=== PATIENT | male | born 1995 | race Caucasian/White ===

== ENCOUNTER 2018-05-04 20:37 | Emergency (ER) | payer OTHER ==
[2018-05-04] MEDS ORDERED: IBUP1TAB90 PO (20:47)
[2018-05-04] MEDS ORDERED: INSU100V24 SQ (20:49)
[2018-05-04] MEDS ORDERED: LANI SUBQ (20:49)
[2018-05-04] MEDS ORDERED: OXYMETAZOLINE SPRAY 15 ML BTL ENA SCH (21:20)
[2018-05-04] MEDS ORDERED: ENT KIT ONE (21:24)
--- NOTE | 2018-05-04 21:38 | ER Report ---
History and Physical Time Seen By MD: 20:55 Hx. of Stated Complaint: nosebleed for an hour gushing from r nare, pt lightheaded type 1 diabetic HPI/ROS CHIEF COMPLAINT: epistaxis HISTORY OF PRESENT ILLNESS: pt has had intermittent bleeding from r nare since this am; feels like just less than 1 cup over course of the day. Since he moved here 3 yrs ago, has occasional nosebleeds that are controlled when he keeps nares moist. Just returned from [facility] [place] and has not been using ointment. Scratched r nare today and noted bleeding. Lightheaded earlier today but not now. No cp, sob, ap. No known bleeding problems though his grandfather is seen for frequent nose bleeds as well. Has never had blood testing by pcm REVIEW OF SYSTEMS: Respiratory: No cough, no dyspnea. Cardiovascular: No chest pain, no palpitations. Gastrointestinal: No vomiting, no abdominal pain. Musculoskeletal: No back pain. Allergies: Coded Allergies: amoxicillin (Verified Allergy, Mild, 05/04/18) Home Meds Reported Medications Insulin Glargine (LANTUS) 100 Unit/Ml Soln, 100 UNIT SUBQ, ML 05/04/18 Insulin Lispro 100 Un/Ml Vial (HUMALOG 100 U/ML VIAL) 100 Unit/1 Ml Vial, 100 UNIT SQ, VIAL 05/04/18 Ibuprofen/Diphenhydramine Cit (ADVIL PM CAPLET) 1 Each Tablet, 1 EACH PO QHS 05/04/18 Constitutional Vital Sign - Last 24 Hours 05/04/18 20:43 Pulse 67 Resp 16 B/P (MAP) 131/87 Pulse Ox 93 O2 Delivery Room Air Physical Exam General Appearance: The patient is alert, has no immediate need for airway protection and no current signs of toxicity. [ ] Eyes: Pupils equal and round no injection. ENT: r nare no polyp, oozing from medial base of ant r nare. No e/o posterior bleed or l sided bleed Respiratory: Chest is non tender, lungs are clear to auscultation. Cardiac: regular rate and rhythm Musculoskeletal: Neck: Neck is supple and non tender. Extremities have full range of motion and are non tender. Skin: No rashes or lesions. DIFFERENTIAL DIAGNOSIS: After history and physical exam differential diagnosis was considered for ant v post nosebleed Medical Decision Making ED Course/Re-evaluation ED Course Pt presents with epistaxis; c/w anterior; though not brisk, he has continued oozing not amenable to cautery attempt; improved with packing and txa. Packing removed prior to d/c. Will d/c wtih SRP's and recommend pcm eval for blood testing given family history Procedure Procedure: Epistaxis control. The patient was anesthetized with afrin/2% lido/epi. The anterior epistaxis was identified. The patient was treated with cautery. Following the procedure the patient was re-examined and the bleeding was well controlled. The patient tolerated the procedure well. The procedure was performed by myself. Ultimately, with continued oozing, I packed with TXA for 30 min. This controlled bleeding and pt tolerated well. Decision to Disposition Date: May 04, 2018 Decision to Disposition Time: 22:32 Depart Departure Latest Vital Signs Vital Signs Date Time Temp Pulse Resp B/P (MAP) Pulse Ox O2 Delivery O2 Flow Rate FiO2 05/04/18 20:43 67 16 131/87 93 Room Air Impression: Primary Impression: Epistaxis Condition: Improved Disposition: HOME OR SELF-CARE Patient Instructions: Nosebleed (ED) Additional Instructions: As we discussed, follow up with your primary doctor for consideration of blood testing as epistaxis runs in the family. Keep lubricated with vaseline or similar product as well as nasal spray. Return for any concerns. VICK BONDS MD May 04, 2018 21:38
[2018-05-04] MEDS ORDERED: TRANEXAMIC AC 1000 MG/10ML SDV ONE (21:45)
[2018-05-04 22:30] VITALS: BP 113/74
== END 2018-05-04 22:50 | disposition home or self-care (01) ==
LOC: ER 20:46
DX: R04.0 Epistaxis (principal); E10.9 Type 1 diabetes mellitus without complications; Z79.899 Other long term (current) drug therapy
CPT/HCPCS: 99282